=== PATIENT | female | born 1940 | race Hispanic/Latino ===

== ENCOUNTER 2024-02-09 13:45 | Emergency (ER) | payer MEDICARE ==
[~2024-02-09] VITALS: Ht 154.9 cm; Wt 66.7 kg
[~2024-02-09 13:45] MED LIST: ASPIRIN LOW-STR81 MG PO; GLIPIZIDE ER2.5 M1 PO; JANUVIA; SITAGLIPTIN; SURFAK240 M2 PO; TRAMADOL; VITAMIN D; Z.0.METFORMIN HCL100; [UNRECOGNIZED DRUG - OTHER] PO
[2024-02-09 14:31] VITALS: PULSE 79; RESP 18; TEMP 97.8; O2SAT 99
== END 2024-02-09 15:12 | disposition home or self-care (01) ==
LOC: ER 15:01
DX: M25.562 Pain in left knee (principal); M25.561 Pain in right knee; M81.0 Age-related osteoporosis without current pathological fracture; D64.9 Anemia, unspecified; M06.9 Rheumatoid arthritis, unspecified
CPT/HCPCS: 99282